=== PATIENT | female | born 1975 | race African-American/Black ===

== ENCOUNTER 2020-01-24 00:42 | Outpatient (CLI) | payer BC, SELFPAY ==
[2020-01-24 20:09] LABS: SARS-CoV-2 RNA PCR Negative
== END 2020-01-24 00:43 | disposition home or self-care (01) ==
LOC: ANHCOVIDDT 00:43
PROVIDERS: PCP Family Medicine Adolescent Medicine; Visit Provider Obstetrics & Gynecology
DX: Z01.812 Encounter for preprocedural laboratory examination (principal); Z11.59 Encounter for screening for other viral diseases
CPT/HCPCS: 87635; C9803; U0003

== ENCOUNTER 2020-01-24 08:19 | Outpatient (CLI) | payer BC, SELFPAY ==
[2020-01-24 08:53] LABS: Hematocrit 48.4 % (37.0-47.0); Mean Corpuscular HGB Conc 33.1 g/dl (32-36); Mean Corpuscular Hemoglobin 30.7 pg (26-34); Mean Corpuscular Volume 92.9 fl (80-100); Mean Platelet Volume 9.4 fl (7.4-10.4); Platelet Count Result 382 k/mm3 (150-375); Red Blood Count 5.21 M/mm3 (4.2-5.4); Red Cell Distribution Width 12.6 % (11.5-14.5); White Blood Count 11.9 K/mm3 (4.5-10.0)
[2020-01-24 09:02] LABS: Hemoglobin A1C 5.6 % (<5.7)
[2020-01-24 09:22] LABS: Beta HCG Quantitative < 2.39 mIU/ML
[2020-01-24 10:02] LABS: Free T4 Free Thyroxine 1.35 ng/mL (0.78-2.19)
[2020-01-29 05:09] LABS: Prolactin 13.4 ng/mL (***)
== END 2020-01-24 08:20 | disposition home or self-care (01) ==
LOC: ANHLAB 08:21
PROVIDERS: PCP Family Medicine Adolescent Medicine; Visit Provider Obstetrics & Gynecology
DX: N93.8 Other specified abnormal uterine and vaginal bleeding (principal)
CPT/HCPCS: 36415; 83036; 84146; 84439; 84443; 84702; 85027

== ENCOUNTER 2020-01-25 01:59 | Day surgery (SDC) | payer BC, SELFPAY ==
[2020-01-23 11:01] VITALS: BMI 34.3
--- NOTE | 2020-01-25 11:23 | PM.HPGS ---
History of Present Illness History of Present Illness Consent: Risks, benefits, and alternatives have been discussed and questions answered. Patient agrees to proceed with procedure. Chief complaint: Abnormal Uterine Bleeding, Fibroids Narrative: Golden Salazar is a 44 year old female with history of abnormal uterine bleeding and fibroids on ultrasound. Review of Systems Review of Systems: All systems reviewed & are unremarkable except as noted in HPI and below PMFSH Past Medical History Medical History (Updated 01/25/20 @ 11:23 by Montana Goddard MD) Abnormal uterine bleeding (AUB) Social History Social History Smoking status: Never smoker Alcohol intake: current Drinks per week: 2 Substance use: current Substance use type: marijuana Last use: 01/21/20 Spiritual care concerns: No Meds Home Medications and Allergies Home Medications Medication Instructions Recorded Confirmed Type No Home Medications 01/23/20 01/23/20 History Allergies Allergy/AdvReac Type Severity Reaction Status Date / Time No Known Allergies Verified 01/23/20 11:01 Exam Const: General: no acute distress GI: GI Palp: Yes Soft to palpation (nontender) : External Female Exam: normal external appearance Assessment and Plan Assessment and plan (1) Abnormal uterine bleeding (AUB): Code(s): N93.9 - Abnormal uterine and vaginal bleeding, unspecified Status: Acute Assessment and Plan: Scheduled for a hysteroscopy with dilation and curettage possible myosure.
[2020-01-25] MEDS: ACETAMINOPHEN 500 MG TABLET 1000 MG PO (13:05)
[2020-01-25] MEDS: LACTATED RINGERS 1,000 ML 30 ML IV CONT (13:23)
[2020-01-25 13:53] VITALS: BP 110/78; PULSE 56; TEMP 36.5; O2SAT 100
--- NOTE | 2020-01-25 13:53 | P.PNAN_ITS ---
Anes - Initial Pre Proc Eval Procedure: Operation Date: 01/25/20 14:30 Proposed Procedures p Hysteroscopy Dilation and Curettage, Possible Myosure - Montana Goddard MD Date/Time: 01/25/20 13:53 Surgeon: Montana Goddard MD Pre Op Diagnosis: Abnormal Uterine Bleeding, Fibroids Patient Data Age: 44 Gender: F Height: 1.63 m Weight: 90.72 kg Allergies Allergy/AdvReac Type Severity Reaction Status Date / Time No Known Allergies Verified 01/23/20 11:01 Home Medications Medication Instructions Recorded Confirmed Type No Home Medications 01/23/20 01/23/20 History Patient hx anesthesia problems: none Family hx anesthesia problems: none [facility] Past Medical History Medical History (Updated 01/25/20 @ 13:54 by Cedric Amaral MD) Abnormal uterine bleeding (AUB) Leiomyoma Obesity Social History Social History Smoking status: Never smoker Alcohol intake: current Drinks per week: 2 Substance use: current Substance use type: marijuana Last use: 01/21/20 Spiritual care concerns: No Anes - Eval Final PreProcedure Day of Procedure 01/25/20 13:53 Patient weight: overweight Heart: regular rate and rhythm Lungs: clear to auscultation and normal air movement Airway: Mallampati scale class II Neurological: alert and oriented Last oral intake: >/= 8 hours ASA classification: II Emergent: no Anesthetic plan: proceed Anesthesia type and monitoring: general GIVS and LMA Informed Consent: The patient's anesthetic plan and its attendant risks and benefits were discussed with the patient/family/POA. Questions were solicited and answers provided to the satisfaction of the patient/family/POA.
[2020-01-25 15:00] VITALS: BP 136/87; PULSE 85
[2020-01-25 15:30] VITALS: BP 133/85; PULSE 70
[2020-01-25 16:00] VITALS: BP 137/69; PULSE 63
--- NOTE | 2020-01-26 10:09 | OP_ITS ---
DATE OF PROCEDURE: 01/25/2020 PREOP DIAGNOSIS: Abnormal uterine bleeding and fibroids. POSTOPERATIVE DIAGNOSIS: Abnormal uterine bleeding and fibroids. PROCEDURE PERFORMED: Hysteroscopy with dilation and curettage. ANESTHESIA: MAC with paracervical block. COMPLICATIONS: None. ESTIMATED BLOOD LOSS: 10 cc. FINDINGS: Bilateral tubal ostia with normal uterine cavity. PROCEDURE IN DETAIL: Patient was taken to the operating room with IV running. Draped in normal sterile fashion, placed in the dorsal lithotomy position and prepared and draped in normal sterile fashion. A bivalve speculum was placed into the vagina. Anterior lip of the cervix was grasped with a single-toothed tenaculum. The cervix was injected at 2 and 10 o'clock position, 5 cc of lidocaine. The uterus was sounded to 8 cm and then the cervix was serially dilated with Hegar dilators. The hysteroscope was introduced, revealed a normal uterine cavity. Bilateral ostia. No fibroids noted. The hysteroscope was removed and a sharp curettage was performed in all 4 quadrants of the uterus for a gritty texture. Also endocervical curetting was performed instruments were removed. The tenaculum site noted to be hemostatic. Sponge, lap, and needle counts were correct x2. D I MT: Yoshi
== END 2020-01-25 16:15 | disposition home or self-care (01) ==
PROVIDERS: PCP Family Medicine Adolescent Medicine; Visit Provider Obstetrics & Gynecology
PROC: 0U5B8ZZ Destruction of Endometrium, Via Natural or Artificial Opening Endoscopic (ICD-10-PCS; CPT 58563; principal; 2020-01-25 14:30)
DX: N93.9 Abnormal uterine and vaginal bleeding, unspecified (principal); D25.9 Leiomyoma of uterus, unspecified; N88.8 Other specified noninflammatory disorders of cervix uteri; N85.8 Other specified noninflammatory disorders of uterus; E66.9 Obesity, unspecified; Z68.34 Body mass index [BMI] 34.0-34.9, adult
CPT/HCPCS: 58558; 88305; A9270; J2250; J2405; J2704; J3010; J7120

== ENCOUNTER 2020-02-27 00:28 | Outpatient (CLI) | payer OTHER, SELFPAY ==
[2020-02-27 18:19] LABS: SARS-CoV-2 RNA PCR Negative
== END 2020-02-27 00:29 | disposition home or self-care (01) ==
LOC: ANHCOVIDDT 00:29
PROVIDERS: PCP Family Medicine Adolescent Medicine; Visit Provider Surgery Plastic and Reconstructive Surgery
DX: Z01.812 Encounter for preprocedural laboratory examination (principal); Z20.828 Contact with and (suspected) exposure to other viral communicable diseases
CPT/HCPCS: 87635; C9803; U0003

== ENCOUNTER 2020-02-29 01:47 | Day surgery (SDC) | payer OTHER, SELFPAY ==
[2020-02-12 14:58] VITALS: BMI 33.1
[2020-02-29] VITALS (14 sets, daily range): BP systolic 102–141; BP diastolic 58–87; PULSE 69–96; RESP 13–20; TEMP 36.2–36.8; O2SAT 98–100
[2020-02-29] MEDS: LACTATED RINGERS 1,000 ML 30 ML IV CONT ×2 (07:40→14:35)
[2020-02-29 07:47] LABS: Urine Cotinine NEGATIVE
--- NOTE | 2020-02-29 08:17 | WPDHPUPDATE1 ---
History and Physical Update Update Date/Time: 02/29/20 08:17 History and Physical has been reviewed, including an updated exam of the patient. There are NO changes in the patient's condition. Risks, benefits, and alternatives have been discussed and questions answered. Patient agrees to proceed with procedure.
--- NOTE | 2020-02-29 08:33 | P.PNAN_ITS ---
Anes - Initial Pre Proc Eval Procedure: Operation Date: 02/29/20 09:00 Proposed Procedures p Abdominoplasty - Garrett Benites MD s Bilateral Hip Fat Grafting - Garrett Benites MD Date/Time: 02/29/20 08:33 Surgeon: Garrett Benites MD Pre Op Diagnosis: skin laxity, Excess Adipose Tissue on Flanks Patient Data Age: 45 Gender: F Height: 1.63 m Weight: 86.1 kg Last Vital Signs Temp 36.2 C L 02/29/20 07:13 Pulse 72 02/29/20 07:13 Resp 16 02/29/20 07:13 BP 129/78 02/29/20 07:13 Pulse Ox 100 02/29/20 07:13 Allergies Allergy/AdvReac Type Severity Reaction Status Date / Time No Known Allergies Verified 02/29/20 07:52 Home Medications Medication Instructions Recorded Confirmed Type docusate sodium 100 mg capsule 100 mg PO DAILY #14 cap 02/13/20 02/29/20 Rx ondansetron HCl 4 mg tablet 4 mg PO Q8H #28 tablet 02/13/20 02/29/20 Rx carisoprodol 350 mg tablet 350 mg PO TID PRN #21 tablet 02/14/20 02/29/20 Rx oxycodone-acetaminophen 5 mg-325 1 tablet PO Q6H PRN #15 tablet 02/14/20 Rx mg tablet Laboratory Tests 02/29/20 07:34 Cotinine Negative Patient hx anesthesia problems: none Family hx anesthesia problems: none [facility] Social History Social History (Updated 02/13/20 @ 13:57 by Lora Connelly) Smoking status: Never smoker Alcohol intake: current Drinks per week: 2 Substance use: current Substance use type: marijuana Last use: 01/21/20 Spiritual care concerns: No Anes - Eval Final PreProcedure Day of Procedure 02/29/20 08:33 Patient weight: obese Heart: regular rate and rhythm Lungs: clear to auscultation and normal air movement Airway: Mallampati scale class II Neurological: alert and oriented Last oral intake: >/= 8 hours ASA classification: II Emergent: no Anesthetic plan: proceed Anesthesia type and monitoring: general ETT and standard monitoring Informed Consent: The patient's anesthetic plan and its attendant risks and benefits were discussed with the patient/family/POA. Questions were solicited and answers provided to the satisfaction of the patient/family/POA.
--- NOTE | 2020-02-29 08:38 | PM.PROC ---
Procedure Note - Detailed Date of procedure: 02/29/20 Pre-op diagnosis: skin laxity, Excess Adipose Tissue on Flanks Post-op diagnosis: same Procedure performed: Abdominoplasty with fat grafting bilateral later flank / upper thigh Description of procedure: She is here today for abdominoplasty. Previously and again today the risks, benefits, alternatives were discussed in extensive detail. I wanted her to be very realistic about the risks involved as well as expectations. We discussed aftercare and what to monitor for. I was very upfront about the risks of wound breakdown leading to loss of skin, open wounds, and need for additional procedures with permanent abdominal deformity. We discussed DVT/PE risks and management. Made sure answered all of her questions to her satisfaction today and consent was obtained. She was marked in the preoperative holding area with their verification. The patient was taken to the operating room placed supine on the operating table. Anesthesia was provided by anesthesiology. A allen catheter was started. She was prepped and draped in a standard sterile fashion. A surgical time-out was taken. I placed the patient in a flexed position to verify the upper and lower markings would reach. I then placed her supine. A thorough abdominal examination was completed. Stab incisions were made and used tumescent solution. Suction lipectomy was completed with a combination of 3mm multihole cannula and 4mm basket canula collected in a gravity separation canister. Once we had adequate volume rolling pinch was completed to verify good contour. We the fluid removing inferior and superior fluid using just adipose tissue. Aspirate was 1400cc. This was infiltrated in multiple planes and passes until good contour. Total fat grafting right 235cc left 265cc. She was turned intraoperatively from side to side to ensure good contour / maximize outcome. A 10 blade was used to make the upper incision. I continued dissection down to the level of fascia. Elevated just what was necessary for repair of the diastasis and discontinuous undermining otherwise. I then again flexed the bed to verify the upper skin flap would reach the lower markings without tension. Once verified I placed her supine once again and a 10 blade used to make the lower incision. I elevated up to level the umbilicus and left the umbilicus intact on a well-vascularized stalk. The intervening tissue was removed. A 2 mm blunt cannula and Exparel which was mixed 20 cc in 100 cc for a total volume of 120 cc I injected deep to the fascia bilaterally as well as along the incision lines. I plicated the diastasis recti using 0 PDO stratafix barbed suture. This was in 2 separate layers using 2 separate sutures as well. I repaired around the umbilicus leaving plenty of room for well-vascularized stalk of the umbilicus with 2-0 PDS. The patient was flexed and starting from superior to inferior began plication using 2-0 Vicryl to obliterate all space in a standard progressive tension fashion. At the umbilicus I marked out the location of the skin and inset this with 3-0 Monocryl and 4-0 nylon. I continued the remainder of the plication using 2-0 Vicryl until I reached my lower planned scar line. I trimmed any excess skin of the upper flap making sure this was a tension-free closure. I then approximated using a 3 point suture with 2-0 Vicryl followed by 3-0 stratafix ,running subcuticular 4-0 Monocryl, and tissue glue. Fluffs and an abdominal binder were placed. The patient was transferred to the bed in a flexed position. Awoken and taken to the PACU without difficulty. All instrument and sponge counts were correct at the end of the case. Surgeon: Garrett Benites MD Estimated blood loss (mL): 30 Drains: No Packing: No Pathology: none sent Complications: No immediate complications Condition: stable Disposition: PACU Findings: Tissue removed: 2195 grams A
[2020-02-29] MEDS: ceFAZolin 2 GM/D5W 50 ML 2 GM/50 ML BAG IVPB (08:51)
[2020-02-29] MEDS: ceFAZolin SODIUM 1 GM VIAL IV PUSH (12:44)
--- NOTE | 2020-02-29 13:51 | SUR.OPER ---
EBL:50cc
[2020-02-29] MEDS: LACTATED RINGERS 1,000 ML 125 ML IV CONT (16:02)
[2020-02-29] MEDS: MORPHINE SULFATE 2 MG/ML INJ IV PUSH (16:06)
--- NOTE | 2020-02-29 16:12 | OBPPTRN ---
Patient transferred to room # 277 via pt bed. Oriented to unit, room, and information board. Patient verbalizes understanding.
[2020-02-29] MEDS: carisoprodoL 350 MG TABLET PO ×2 (17:40→23:40)
[2020-02-29] MEDS: oxyCODONE/ACETAMINOPHEN 5-325 MG TABLET PO ×2 (18:11→23:40)
[2020-02-29] MEDS: ENOXAPARIN 40 MG/0.4 ML SYRINGE SUB-Q (23:05)
[2020-02-29] MEDS: DOCUSATE SODIUM 100 MG CAPSULE PO (23:05)
[2020-03-01 04:55] VITALS: BP 129/87; PULSE 82; RESP 16; TEMP 36.6
[2020-03-01] MEDS: carisoprodoL 350 MG TABLET PO (05:10)
[2020-03-01] MEDS: oxyCODONE/ACETAMINOPHEN 5-325 MG TABLET PO ×2 (05:10→10:53)
--- NOTE | 2020-03-01 07:38 | WPDANESPN ---
Anes - Prog Note Post-Op Date/Time: 03/01/20 07:38 Cardiovascular status: normal Respiratory status: normal Airway patency: baseline Mental status: baseline Post-Op hydration status: normal Vital Signs: Last Vital Signs Temp 36.6 C 03/01/20 04:55 Pulse 82 03/01/20 04:55 Resp 16 03/01/20 04:55 BP 129/87 03/01/20 04:55 Pulse Ox 100 02/29/20 17:40 I/O: Intake & Output 02/29/20 02/29/20 03/01/20 15:59 23:59 07:59 Intake Total 250 1280 400 Output Total 135 200 6503 Balance -300 880 -800 02/29/20 07:34 Cotinine Negative Post-procedural complaints: none Patient Feedback: Patient satisfied with anesthetic care.
--- NOTE | 2020-03-01 08:53 | WPDPN ---
Progress Note: A&P Assessment and Plan (1) Skin laxity: Code(s): L57.4 - Cutis laxa senilis Status: Acute Assessment and Plan: She is doing very well after progressive tension abdominoplasty with fat grafting. Will discharge home when: Tolerating p.o. Ambulating Pain control Follow-up 1 week. Today we had a lengthy open-ended conversation discussing the care. What monitor for. Made sure answered all of her questions to her satisfaction. I will see her back. (2) Hypertrophic scar: Code(s): L91.0 - Hypertrophic scar Status: Acute Review of Systems Review of Systems: All systems reviewed & are unremarkable except as noted in HPI and below Exam Narrative: Exam Narrative: Abdomen is healing well. There is no signs of infection. No hematoma. No seroma. No calf tenderness. Negative Homans. Const: General: comfortable, no acute distress, alert and awake; No acute distress Orientation/consciousness: oriented to person HENMT: Head: normal to inspection Ears: external ears normal General nose exam: Normal external nose present Face and sinus: normal facial exam Eyes: General: appearance normal, both eyes and all related structures Periorbital: periorbital findings normal Eyelids: eyelids normal Conjunctivae: conjunctivae normal Neck: Neck: normal visual inspection Chest: Chest palpation & inspection: normal inspection of the chest Resp: Effort & Inspection: normal respiratory effort and able to speak in complete sentences GI: Inspection: normal to inspection Neuro: General: oriented to person Psych: Appearance: grossly normal Mental Status: mental status grossly normal Objective Data Vital Signs Vital Signs: Vital Signs - 24 hr 02/29/20 14:35 02/29/20 14:50 02/29/20 15:05 Temperature 36.3 C L Pulse Rate 75 79 76 Respiratory Rate 17 13 18 Blood Pressure 140/84 136/85 136/85 Pulse Oximetry 100 99 99 02/29/20 15:20 02/29/20 15:47 02/29/20 16:00 Temperature 36.7 C Pulse Rate 71 69 96 Respiratory Rate 20 18 18 Blood Pressure 141/86 H 137/83 141/58 H Pulse Oximetry 98 98 98 02/29/20 16:15 02/29/20 16:30 02/29/20 17:00 Temperature Pulse Rate 80 83 92 Respiratory Rate 18 20 18 Blood Pressure 123/72 102/86 Pulse Oximetry 98 100 100 08/28/20 17:40 02/29/20 18:00 02/29/20 19:00 Temperature 36.8 C 36.8 C Pulse Rate 82 88 71 Respiratory Rate 20 20 16 Blood Pressure 139/78 109/84 120/83 Pulse Oximetry 100 02/29/20 23:00 03/01/20 04:55 Temperature 36.7 C 36.6 C Pulse Rate 77 82 Respiratory Rate 16 16 Blood Pressure 125/87 129/87 Pulse Oximetry Intake/Output Intake/Output: Intake & Output 02/27/20 02/28/20 02/29/20 03/01/20 23:59 23:59 23:59 23:59 Intake Total 1530 400 Output Total 950 1200 Balance 580 -800 Meds/Results Medications: Active Medications Generic Name Dose Route Start Last Admin Trade Name Freq PRN Reason Stop Dose Admin Carisoprodol 350 mg 02/29/20 18:00 03/01/20 05:10 Soma PO 350 mg Q6HR NILS Administration Docusate Sodium 100 mg 02/29/20 21:00 02/29/20 23:05 Colace Capsule PO 100 mg Q12HR NILS Administration Enoxaparin Sodium 40 mg 02/29/20 21:00 02/29/20 23:05 Lovenox SUB-Q 40 mg DAILY NILS Administration Morphine Sulfate 2 mg 02/29/20 14:02 02/29/20 16:06 Morphine Sulfate Inj IV PUSH 2 mg Q2H PRN Administration Pain Ondansetron HCl 4 mg 02/29/20 14:02 Zofran Inj IV PUSH Q6H PRN Nausea Oxycodone/Acetaminophen 1 - 2 tablet 02/29/20 14:02 03/01/20 05:10 Percocet 5-325 Mg PO 2 tablet Q6H PRN Administration Pain Subjective Date/time seen: 03/01/20 08:53 She states she is doing very well this morning. No fevers or chills. No nausea vomiting. No shortness of breath. No chest pain. Pain is controlled. She has ambulated. She has not been wearing her SCDs however has received her Lovenox.
--- NOTE | 2020-03-01 08:56 | P.DS_ITS ---
DS: Admitting Diagnosis Admitting Diagnosis Admitting Diagnosis: skin laxity, Excess Adipose Tissue on Flanks DS: Discharge Diagnosis Discharge Diagnosis (1) Skin laxity: Code(s): L57.4 - Cutis laxa senilis Status: Acute Assessment and Plan: Doing very well after progressive tension abdominoplasty with fat grafting. DS: Summary Time Spent with Patient Time attestation: Total time spent providing and/or coordinating discharge services: 20 minutes Exam Narrative: Exam Narrative: Abdomen is healing well. There is no signs of infection. No hematoma. No seroma. No calf tenderness. Negative Homans. Const: General: comfortable, no acute distress, alert and awake; No acute distress Orientation/consciousness: oriented to person HENMT: Head: normal to inspection Ears: external ears normal General nose exam: Normal external nose present Face and sinus: normal facial exam Eyes: General: appearance normal, both eyes and all related structures Periorbital: periorbital findings normal Eyelids: eyelids normal Conjunctivae: conjunctivae normal Neck: Neck: normal visual inspection Chest: Chest palpation & inspection: normal inspection of the chest Resp: Effort & Inspection: normal respiratory effort and able to speak in complete sentences GI: Inspection: normal to inspection Neuro: General: oriented to person Psych: Appearance: grossly normal Mental Status: mental status grossly normal Discharge Plan Discharge Patient Disposition: Home, Self-Care Discharge Instructions: POST OPERATIVE DISCHARGE INSTRUCTIONS FOR Abdominoplasty / Fat grafting GARRETT BENITES [facility] [address] [place] [address] * No driving for 24 hours after anesthesia and while you are taking pain medication. * Take all prescribed medication as directed * Diet as tolerated. * No lifting or activity that raises blood pressure for 48 hours. * Regular walking / ambulation. * No showering until directed to. Once you shower do not take pain medication before showering as the combination of medication and heat may cause you to feel dizzy or pass out. * No pools or tubs for 2 weeks. * Call with any questions or concerns. * Slowly stand up straight as tolerated over the week. * No straining / lifting more than 20 pounds for 6 weeks. * Dressing Care: May shower in 24 hours. Continue abdominal binder 23 hours per day. If you have any questions or concerns, please call the office . If it is after hours you will be directed to the sql consultant exchange. Shortness of breath, chest pain, or other medical emergency dial 911 / proceed to the Emergency Room. Stand Alone Forms: General Discharge Instructions Follow-up/Referrals: Garrett Benites MD [Physician] - 1 Week Discharge Medications: Continued ondansetron HCl [Zofran] 4 mg tablet 4 mg PO Q8H Qty: 28 RF: 0 docusate sodium [Colace] 100 mg capsule 100 mg PO DAILY Qty: 14 RF: 0 carisoprodol [Soma] 350 mg tablet 350 mg PO TID PRN (Reason: muscle pain) Qty: 21 RF: 0 oxycodone-acetaminophen [Percocet] 5-325 mg tablet 1 tablet PO Q6H PRN (Reason: pain) Qty: 15 RF: 0
[2020-03-01 09:42] VITALS: BP 99/62; PULSE 104; RESP 16; TEMP 36.7; O2SAT 100
[2020-03-01] MEDS: DOCUSATE SODIUM 100 MG CAPSULE PO (09:42)
[2020-03-01] MEDS: ENOXAPARIN 40 MG/0.4 ML SYRINGE SUB-Q (09:43)
--- NOTE | 2020-03-01 16:14 | PC.NURSE ---
1136 pt has filled prescriptions at home from Dr. Benites.
== END 2020-03-01 11:36 | disposition home or self-care (01) ==
LOC: ANHSURGERY 07:05 → ANHOB2 15:38
PROVIDERS: Visit Provider Surgery Plastic and Reconstructive Surgery
PROC: (CPT 15830; principal; 2020-02-29 09:00)
PROC: (CPT 15769; 2020-02-29 09:00)
DX: L57.4 Cutis laxa senilis (principal); E65 Localized adiposity; Z68.34 Body mass index [BMI] 34.0-34.9, adult; L91.0 Hypertrophic scar
CPT/HCPCS: 15830; 15771; 15772 ×9; 80307; 99199; A9270; C9290; J0171; J0690; J1100; J1170; J1650; J2250; J2270; J2405; J2704; J3010; J7120